=== PATIENT | female | born 1955 | race Caucasian/White ===

== ENCOUNTER 2017-11-17 10:23 | Outpatient (CLI) | payer MEDICAID ==
[~2017-11-17 10:23] MED LIST: ALBU8.5H8 IH; BECL8.7A6 INH; BISA10SU60 RC; CYCL-1 PO; GUAI600T45 PO; NAPR-56 PO; QUET25TA PO; SPIIN INH
[2017-11-17 10:37] VITALS: BP 137/74
== END 2017-11-17 11:35 | disposition home or self-care (01) ==
LOC: ORTHO 10:23
PROVIDERS: ATTEND Nurse Practitioner Family
DX: S62.316A Displaced fracture of base of fifth metacarpal bone, right hand, initial encounter for closed fracture (principal); F41.9 Anxiety disorder, unspecified; G89.29 Other chronic pain; I10 Essential (primary) hypertension; J44.9 Chronic obstructive pulmonary disease, unspecified; M81.0 Age-related osteoporosis without current pathological fracture; X58.XXXA Exposure to other specified factors, initial encounter; Y93.89 Activity, other specified; Y92.89 Other specified places as the place of occurrence of the external cause; Y99.8 Other external cause status; F17.210 Nicotine dependence, cigarettes, uncomplicated
CPT/HCPCS: 29125; 73130

== ENCOUNTER 2017-12-08 12:59 | Outpatient (CLI) | payer MEDICAID ==
[2017-12-08 12:45] VITALS: BP 144/82
[~2017-12-08 12:59] MED LIST changes: -NAPR-56 PO
== END 2017-12-08 13:25 | disposition home or self-care (01) ==
LOC: ORTHO 12:59
PROVIDERS: ATTEND Nurse Practitioner Family
DX: S62.346D Nondisplaced fracture of base of fifth metacarpal bone, right hand, subsequent encounter for fracture with routine healing (principal); M81.0 Age-related osteoporosis without current pathological fracture; F17.210 Nicotine dependence, cigarettes, uncomplicated; F41.9 Anxiety disorder, unspecified; G89.29 Other chronic pain; I10 Essential (primary) hypertension; J44.9 Chronic obstructive pulmonary disease, unspecified; X58.XXXD Exposure to other specified factors, subsequent encounter
CPT/HCPCS: 29260; 73130

== ENCOUNTER 2019-07-31 09:42 | Emergency (ER) | payer MEDICAID, OTHER ==
[~2019-07-31] VITALS: Ht 157.5 cm; Wt 36.9 kg
[2019-07-31] MEDS ORDERED: normal saline 1000ml 1,000 ML IV ONE (10:15)
[2019-07-31] MEDS ORDERED: famotidine 20mg tablet PO ONE (10:15)
[2019-07-31] MEDS ORDERED: ondansetron/PF 4mg/2ml inj IV ONE (10:15)
[2019-07-31] MEDS ORDERED: morphine 4 MG/ML inj SYRINge IV ONE (10:15)
[2019-07-31] MEDS ORDERED: pantoprazole 40 MG vial IV ONE (10:15)
[2019-07-31] MEDS ORDERED: iohexol 350MG/ML 100ml bottle IV ONE (10:38)
[2019-07-31 10:49] LABS: BASOPHILS # (AUTO) 0.1 X10'3 (0-0.2); BASOPHILS % (AUTO) 0.8 % (0-1); EOSINOPHILS % (AUTO) 0.2 % (0-6); HEMATOCRIT 40.8 % (35.0-45.0); HEMOGLOBIN 13.6 g/dl (12.0-16.0); LYMPHOCYTES % (AUTO) 13.5 % (21-51); MEAN CORPUSCULAR HEMOGLOBIN 33.2 PG (27.0-31.0); MEAN CORPUSCULAR HGB CONC 33.3 g/dL (33.0-36.5); MEAN CORPUSCULAR VOLUME 99.7 FL (78-98); MEAN PLATELET VOLUME 7.4 FL (7.4-10.4); MONOCYTES % (AUTO) 6.7 % (2-12); NEUTROPHILS # (AUTO) 11.8 X10'3 (1.8-7.7); NEUTROPHILS % (AUTO) 78.8 % (42-75); PLATELET COUNT 461 X10'3 (140-440); RED BLOOD COUNT 4.09 X10'6 (4.20-5.60); RED CELL DISTRIBUTION WIDTH 15.6 % (11.5-14.5); WHITE BLOOD COUNT 14.9 X10'3 (4.5-11.0)
[2019-07-31 11:04] LABS: PARTIAL THROMBOPLASTIN TIME 23 SECONDS (22-32)
[2019-07-31 11:05] LABS: ALANINE AMINOTRANSFERASE 14 U/L (12-78); ALBUMIN 3.9 G/DL (3.4-5.0); ALBUMIN/GLOBULIN RATIO 1.2 (1.1-1.5); ALKALINE PHOSPHATASE 62 IU/L (46-116); ANION GAP 19 (8-16); ASPARTATE AMINO TRANSFERASE 16 U/L (10-37); BILIRUBIN,TOTAL 0.4 MG/DL (0.1-1.0); BLOOD UREA NITROGEN 38 MG/DL (7-18); CHLORIDE 96 MMOL/L (99-107); POTASSIUM 4.4 MMOL/L (3.5-5.1); SODIUM 133 MMOL/L (135-145); TOTAL CARBON DIOXIDE 17.6 MMOL/L (24-32); TOTAL PROTEIN 7.1 G/DL (6.4-8.2)
[2019-07-31 11:21] LABS: BUN/CREATININE RATIO 16.8 (6.6-38.0); CALCIUM 8.9 MG/DL (8.5-10.1); CREATININE 2.32 MG/DL (0.40-0.90); GLUCOSE 74 MG/DL (70-104); eGFR 21 ML/MIN
[2019-07-31] MEDS ORDERED: TRAM50TA2 PO (12:05)
[2019-07-31] MEDS ORDERED: AZIT-63 PO (12:05)
[2019-07-31] MEDS ORDERED: azithromycin 250mg tablet PO ONE (12:05)
[2019-07-31 12:12] VITALS: BP 113/55
== END 2019-07-31 12:15 | disposition home or self-care (01) ==
LOC: ER 09:43
DX: R07.89 Other chest pain (principal); R05 Cough; R94.4 Abnormal results of kidney function studies; E86.0 Dehydration; I10 Essential (primary) hypertension; J43.9 Emphysema, unspecified; G89.29 Other chronic pain; M81.0 Age-related osteoporosis without current pathological fracture; F41.9 Anxiety disorder, unspecified; Z56.0 Unemployment, unspecified; Z79.2 Long term (current) use of antibiotics; Z79.899 Other long term (current) drug therapy; Z88.6 Allergy status to analgesic agent
CPT/HCPCS: 36415; 71046; 71275; 80053; 84145; 84484; 85025; 85610; 85730; 93005; 96361; 96374; 96375; 99284; C9113; J2270; J2405; J7030; Q9967

== ENCOUNTER 2021-11-26 15:22 | Inpatient (IN) | payer BC, MEDICAID ==
[~2021-11-26] VITALS: Ht 157.5 cm; Wt 38.6 kg
[2021-11-26 11:50] VITALS: BP 110/70
[~2021-11-26 15:22] MED LIST changes: +ALBU8.5H17 IH; -ALBU8.5H8 IH
[2021-11-26 15:59] LABS: ABG BASE EXCESS -2.7 mmol/L (-2.0-2.0); ABG HCO3 22.2 mmol/L (22.0-26.0); ABG OXYGEN SATURATION 93.6 % (94-97); ABG PCO2 (T) 39.3 mmHg (32.0-45.0); ALLEN'S TEST POSITIVE; FCOHb 1.2 % (0.0-3.9); FLOW 4 L/min; FMetHb 0.3 % (0.0-1.5); FO2Hb 92.2 % (94-97); PATIENT TEMPERATURE 37.1
[2021-11-26] MEDS ORDERED: methylPREDNISolone sod succ 125mg/2ml vial IV ONE (16:05)
[2021-11-26] MEDS ORDERED: LORazepam 0.5 MG tablet PO PRN ×2 (16:10→17:20)
[2021-11-26 16:14] LABS: APTT 29 SECONDS (22-32); D-DIMER 0.23 MG/L FEU (0-0.50)
[2021-11-26 16:41] LABS: BASOPHILS # (AUTO) 0.1 X10'3 (0-0.2); EOSINOPHILS # (AUTO) 0.7 X10'3 (0-0.9); EOSINOPHILS % (AUTO) 5.5 % (0-6); HEMATOCRIT 44.1 % (35.0-45.0); HEMOGLOBIN 14.5 g/dl (12.0-16.0); LYMPHOCYTES % (AUTO) 15.8 % (21-51); MEAN CORPUSCULAR HEMOGLOBIN 33.3 PG (27.0-31.0); MEAN CORPUSCULAR HGB CONC 32.8 g/dL (33.0-36.5); MEAN CORPUSCULAR VOLUME 101.4 FL (78-98); MEAN PLATELET VOLUME 7.3 FL (7.4-10.4); MONOCYTES # (AUTO) 1.2 X10'3 (0-0.9); MONOCYTES % (AUTO) 9.5 % (2-12); NEUTROPHILS # (AUTO) 8.4 X10'3 (1.8-7.7); NEUTROPHILS % (AUTO) 68.2 % (42-75); PLATELET COUNT 322 X10'3 (140-440); RED BLOOD COUNT 4.35 X10'6 (4.20-5.60); RED CELL DISTRIBUTION WIDTH 14.1 % (11.5-14.5); WHITE BLOOD COUNT 12.3 X10'3 (4.5-11.0)
[2021-11-26 16:53] LABS: ALANINE AMINOTRANSFERASE 17 U/L (12-78); ALBUMIN 3.7 G/DL (3.4-5.0); ALKALINE PHOSPHATASE 94 IU/L (46-116); ANION GAP 10 (8-16); ASPARTATE AMINO TRANSFERASE 20 U/L (10-37); BILIRUBIN,TOTAL 0.3 MG/DL (0.1-1.0); BLOOD UREA NITROGEN 14 MG/DL (7-18); BUN/CREATININE RATIO 12.5 (6.6-38.0); CALCIUM 9.3 MG/DL (8.5-10.1); CHLORIDE 102 MMOL/L (99-107); CREATININE 1.12 MG/DL (0.40-0.90); GLUCOSE 108 MG/DL (70-104); SODIUM 137 MMOL/L (135-145); TOTAL CARBON DIOXIDE 24.8 MMOL/L (24-32); TOTAL PROTEIN 7.4 G/DL (6.4-8.2); eGFR 49 ML/MIN
[2021-11-26] MEDS ORDERED: aspirin 325mg tablet PO ONE (17:15)
[2021-11-26] MEDS ORDERED: CefTRIAXone/D5W-Rocephin 1gm 50 ML IV ONE (17:20)
[2021-11-26] MEDS ORDERED: HYDROcodone/acetaminophen 5mg/325mg tablet PO PRN (17:50)
[2021-11-26] MEDS ORDERED: LORazepam 2 mg/ml vial IV ONE (17:50)
[2021-11-26] MEDS: normal saline 1000ml 1,000 ML IV SCH ×2 (17:50→21:55)
[2021-11-26] MEDS ORDERED: ondansetron/PF 4mg/2ml inj IV PRN (17:50)
[2021-11-26] MEDS ORDERED: acetaminophen 325mg tablet PO PRN ×2 (17:50)
[2021-11-26] MEDS: methylPREDNISolone sod succ 125mg/2ml vial IV SCH ×2 (19:00→19:22)
[2021-11-26] MEDS: morphine 2 MG/ML inj. syringe IV PRN (20:36)
--- NOTE | 2021-11-26 20:39 | NUR ---
pt very anxious, took her oxygen cannula off, had pulled her iv out also, stated she did not want to stay in the hospital. pt c/o being very uncomfortable, calmed after speaking with nurse, agreed to stay in the hospital and have iv replaced. pt medicated with morphine for pain
[2021-11-26] MEDS: traZODone 50mg tablet PO SCH (21:49)
[2021-11-26] MEDS: pantoprazole 40mg Tablet.DR PO SCH (22:13)
[2021-11-26] MEDS ORDERED: IPRA3AMP31 NEB (23:30)
[2021-11-26] MEDS ORDERED: TRAZ-256 PO (23:30)
[2021-11-26] MEDS ORDERED: ALBU8.5H17 IH (23:30)
--- NOTE | 2021-11-26 23:50 | NUR ---
Received pt AAOX4 , placed on monitor and oxygen. Pt denied any discomfort at this time and stated that she wants to sleep. IV fluid started, assessment done , respiratory notified to come and see pt. No sign of any discomfort noted.
[2021-11-27 02:00] VITALS: BP 103/42
[2021-11-27 03:04] VITALS: BP 101/69
[2021-11-27] MEDS: LORazepam 1 MG tablet PO PRN ×3 (04:29→16:47)
[2021-11-27 06:00] VITALS: BP 105/59
[2021-11-27 06:14] LABS: BASOPHILS % (AUTO) 0.1 % (0-1); EOSINOPHILS % (AUTO) 0 % (0-6); HEMATOCRIT 40.1 % (35.0-45.0); HEMOGLOBIN 13.5 g/dl (12.0-16.0); LYMPHOCYTES # (AUTO) 0.5 X10'3 (1.1-4.8); LYMPHOCYTES % (AUTO) 7.6 % (21-51); MEAN CORPUSCULAR HEMOGLOBIN 34.1 PG (27.0-31.0); MEAN CORPUSCULAR HGB CONC 33.7 g/dL (33.0-36.5); MEAN CORPUSCULAR VOLUME 101.3 FL (78-98); MEAN PLATELET VOLUME 7.4 FL (7.4-10.4); MONOCYTES # (AUTO) 0.1 X10'3 (0-0.9); MONOCYTES % (AUTO) 2.2 % (2-12); NEUTROPHILS # (AUTO) 5.8 X10'3 (1.8-7.7); NEUTROPHILS % (AUTO) 90.1 % (42-75); PLATELET COUNT 321 X10'3 (140-440); RED BLOOD COUNT 3.96 X10'6 (4.20-5.60); WHITE BLOOD COUNT 6.4 X10'3 (4.5-11.0)
[2021-11-27 06:25] LABS: ALANINE AMINOTRANSFERASE 17 U/L (12-78); ALBUMIN 3.2 G/DL (3.4-5.0); ALBUMIN/GLOBULIN RATIO 0.9 (1.1-1.5); ALKALINE PHOSPHATASE 82 IU/L (46-116); ANION GAP 8 (8-16); ASPARTATE AMINO TRANSFERASE 21 U/L (10-37); BILIRUBIN,TOTAL 0.4 MG/DL (0.1-1.0); BLOOD UREA NITROGEN 22 MG/DL (7-18); BUN/CREATININE RATIO 18.6 (6.6-38.0); CALCIUM 8.6 MG/DL (8.5-10.1); CHLORIDE 105 MMOL/L (99-107); CREATININE 1.18 MG/DL (0.40-0.90); GLUCOSE 134 MG/DL (70-104); SODIUM 137 MMOL/L (135-145); TOTAL CARBON DIOXIDE 24.5 MMOL/L (24-32); TOTAL PROTEIN 6.9 G/DL (6.4-8.2); eGFR 46 ML/MIN
[2021-11-27] MEDS: albuterol 2.5 MG/3 ML nebule NEB SCH ×6 (07:51→23:00)
[2021-11-27] MEDS: CefTRIAXone 2gm/D5W 50ml BAG 50 ML IV SCH (09:17)
[2021-11-27] MEDS: pantoprazole 40mg Tablet.DR PO SCH (09:18)
[2021-11-27] MEDS: methylPREDNISolone sod succ 125mg/2ml vial IV SCH ×2 (09:18→20:40)
[2021-11-27 11:00] VITALS: BP 110/66
[2021-11-27] MEDS: sertraline 25mg tablet PO SCH (11:00)
[2021-11-27] MEDS: nicotine 14mg patch - 24hr TD SCH (11:27)
--- NOTE | 2021-11-27 11:29 | NUR ---
Patient in room PCU 3017. I have received report from Janis CORDOVA and had the opportunity to ask questions and assume patient care.
--- NOTE | 2021-11-27 11:30 | NUR ---
Problems reprioritized. Patient report given, questions answered & plan of care reviewed with Keon CORDOVA.
[2021-11-27 11:38] LABS: ABG HCO3 23.4 mmol/L (22.0-26.0); ABG OXYGEN SATURATION 92.6 % (94-97); ABG PCO2 (T) 37.6 mmHg (32.0-45.0); ABG PO2 (T) 65.1 mmHg (75.0-100.0); ALLEN'S TEST POSITIVE; FCOHb 0.4 % (0.0-3.9); FMetHb 0.2 % (0.0-1.5); PATIENT TEMPERATURE 36.7
[2021-11-27] MEDS: LORazepam 2 mg/ml vial IV PRN (13:43)
--- NOTE | 2021-11-27 14:24 | NUR ---
Malnutrition consult: Pt reports 2-13 lb wt loss with decreased appetite per malnutrition risk screen with RN. Noted pt with a low BMI of 15.6 using scaled wt of 38.64 kg. Per EMR pt with scaled wt hx range of 42.6 kg to more recently 36.9 kg from 6862-2445. Pt appears to be chronically underweight. Pt documented with 25% PO intake first meal on regular diet. No documented edema per physical assessment. Pt appears well developed well nourished per ED report. Pt currently lacks a minimum of two criteria for malnutrition. Will continue to follow and monitor qualifying criteria for malnutrition. Addendum: 11/27/21 at [address] Amended: Links added.
--- NOTE | 2021-11-27 15:02 | NUR ---
PAGER ID: [phone] MESSAGE: Re: Rachelle Kaiser. Room: [facility]. ABG has resulted. Pt asking about being Discharged home. Pt on Room air 96% -[facility] #[id number] -Dr. Paige paged concerning Pt's results
[2021-11-27] MEDS ORDERED: NICO-631 TD (15:20)
[2021-11-27] MEDS ORDERED: SERT-432 PO (15:20)
[2021-11-27] MEDS ORDERED: LEVO500T90 PO (15:20)
--- NOTE | 2021-11-27 15:25 | NUR ---
PAGER ID: [phone] MESSAGE: Re: Rachelle Kaiser. Room: 301. Pt now states that she wants to stay one more night and feels short of breath. -[facility] #[id number] -Dr. Paige paged concerning Pt not wanting to be DC'd
--- NOTE | 2021-11-27 16:33 | NUR ---
During assessment, patient was shaking, crying, and stating that she wanted to go home. She removed oxygen multiple times but denied that she did it. Patient was offered medication for relief of anxiety but she refused.
--- NOTE | 2021-11-27 16:52 | NUR ---
Pt continues to state that she wants to go home and has severe anxiety. PO and IV ativan administered through out day to no avail. Spoke with Pt about the need to stay in the hospital and how leaving early could lead to readdmision.
[2021-11-27 18:00] VITALS: BP 103/54
--- NOTE | 2021-11-27 18:38 | NUR ---
Problems reprioritized. Patient report given, questions answered & plan of care reviewed with Williams CORDOVA.
--- NOTE | 2021-11-27 18:41 | NUR ---
Patient in room PCU 3017. I have received report from TASHA Herbert and had the opportunity to ask questions and assume patient care.
[2021-11-27] MEDS: traZODone 50mg tablet PO SCH (20:37)
[2021-11-27] MEDS: lactobacillus rhamnosus 10,000 MMU CELLS/CAPSULE PO SCH (20:38)
[2021-11-27] MEDS: morphine 2 MG/ML inj. syringe IV PRN (20:45)
[2021-11-27 22:00] VITALS: BP 97/57
[2021-11-27] MEDS: normal saline 1000ml 1,000 ML IV SCH (22:26)
[2021-11-28 02:00] VITALS: BP 103/58
[2021-11-28] MEDS: albuterol 2.5 MG/3 ML nebule NEB SCH ×3 (03:00→12:00)
[2021-11-28 06:00] VITALS: BP 116/60
[2021-11-28 07:58] LABS: BASOPHILS % (AUTO) 0.1 % (0-1); EOSINOPHILS % (AUTO) 0 % (0-6); HEMATOCRIT 37.1 % (35.0-45.0); HEMOGLOBIN 12.1 g/dl (12.0-16.0); LYMPHOCYTES # (AUTO) 0.5 X10'3 (1.1-4.8); LYMPHOCYTES % (AUTO) 4.1 % (21-51); MEAN CORPUSCULAR HEMOGLOBIN 32.9 PG (27.0-31.0); MEAN CORPUSCULAR HGB CONC 32.6 g/dL (33.0-36.5); MEAN CORPUSCULAR VOLUME 101.2 FL (78-98); MEAN PLATELET VOLUME 7.8 FL (7.4-10.4); MONOCYTES # (AUTO) 0.7 X10'3 (0-0.9); MONOCYTES % (AUTO) 5.2 % (2-12); NEUTROPHILS # (AUTO) 11.5 X10'3 (1.8-7.7); NEUTROPHILS % (AUTO) 90.6 % (42-75); PLATELET COUNT 339 X10'3 (140-440); RED BLOOD COUNT 3.66 X10'6 (4.20-5.60); RED CELL DISTRIBUTION WIDTH 14.2 % (11.5-14.5); WHITE BLOOD COUNT 12.6 X10'3 (4.5-11.0)
[2021-11-28] MEDS: sertraline 25mg tablet PO SCH (08:00)
[2021-11-28 08:11] LABS: ANION GAP 8 (8-16); BILIRUBIN,TOTAL 0.3 MG/DL (0.1-1.0); BLOOD UREA NITROGEN 30 MG/DL (7-18); BUN/CREATININE RATIO 23.3 (6.6-38.0); CALCIUM 8.3 MG/DL (8.5-10.1); CHLORIDE 107 MMOL/L (99-107); CREATININE 1.29 MG/DL (0.40-0.90); GLUCOSE 105 MG/DL (70-104); POTASSIUM 4.5 MMOL/L (3.5-5.1); SODIUM 140 MMOL/L (135-145); TOTAL CARBON DIOXIDE 25.3 MMOL/L (24-32); TOTAL PROTEIN 6.7 G/DL (6.4-8.2); eGFR 41 ML/MIN
[2021-11-28 08:12] LABS: ALANINE AMINOTRANSFERASE 15 U/L (12-78); ALBUMIN/GLOBULIN RATIO 0.8 (1.1-1.5); ALKALINE PHOSPHATASE 68 IU/L (46-116); ASPARTATE AMINO TRANSFERASE 19 U/L (10-37)
[2021-11-28] MEDS: LORazepam 2 mg/ml vial IV PRN (08:42)
[2021-11-28] MEDS: methylPREDNISolone sod succ 125mg/2ml vial IV SCH (08:46)
[2021-11-28] MEDS: pantoprazole 40mg Tablet.DR PO SCH (08:50)
[2021-11-28] MEDS: lactobacillus rhamnosus 10,000 MMU CELLS/CAPSULE PO SCH (08:50)
[2021-11-28] MEDS: nicotine 14mg patch - 24hr TD SCH (08:51)
[2021-11-28] MEDS: CefTRIAXone 2gm/D5W 50ml BAG 50 ML IV SCH (08:51)
[2021-11-28] MEDS ORDERED: PRED10TA23 PO (09:44)
--- NOTE | 2021-11-28 09:55 | NUR ---
O2 Sat at rest on room air:90 % If below 89%: Recovery O2 Sat at rest on ___LPM:___%:___% via (mask/nasal cannula, etc..) No further documentation is necessary. If O2 Sat did not drop below 89% on room air,ambulate patient on room air. O2 Sat while ambulating on room air:_83 % Recovery O2 Sat while ambulating on _2 LPM:__92 _% No further documentation is necessary. If patient does not drop below 89% while ambulating, he/she does not qualify for home O2.
[2021-11-28] MEDS ORDERED: pneumococcal 23-VAL P-sac vacc 25 mcg/0.5ml vial IMVAC ONE (10:00)
[2021-11-28] MEDS ORDERED: FLU VACC QS2021-22(6MOS UP)/PF 60 MCG/0.5 ML SYRINGE IM ONE (10:00)
[2021-11-28 11:00] VITALS: BP 108/38
[2021-11-28] MEDS: normal saline 1000ml 1,000 ML IV SCH (12:44)
--- NOTE | 2021-11-28 14:30 | NUR ---
Patient stable for discharge. Oxygen was delivered. Patient was anxious and did not want to wait for FWW to be delivered. [facility] states [facility] will call them when the FWW is ready so they can pick it up. A phone number was provided to pt and incase they do not call. PIV removed with catheter intact. Telemetry removed. Prescriptions called into [facility] off [address] [place]. Discharge instructions reviewed with and patient. Transferred with all belongings to personal vehicle.
== END 2021-11-28 14:57 | disposition home or self-care (01) | DRG 190 ==
LOC: ER 15:23 → ED HOLD 17:56 → PCU 3S 23:21
PROVIDERS: ADMIT Internal Medicine; ATTEND Internal Medicine
DX: J44.1 Chronic obstructive pulmonary disease with (acute) exacerbation (principal); I21.A1 Myocardial infarction type 2; N18.30 Chronic kidney disease, stage 3 unspecified; M81.0 Age-related osteoporosis without current pathological fracture; F42.9 Obsessive-compulsive disorder, unspecified; F41.9 Anxiety disorder, unspecified; F17.210 Nicotine dependence, cigarettes, uncomplicated; I25.10 Atherosclerotic heart disease of native coronary artery without angina pectoris; Z20.822 Contact with and (suspected) exposure to COVID-19; R09.02 Hypoxemia; I12.9 Hypertensive chronic kidney disease with stage 1 through stage 4 chronic kidney disease, or unspecified chronic kidney disease; Z95.5 Presence of coronary angioplasty implant and graft; Z88.8 Allergy status to other drugs, medicaments and biological substances
CPT/HCPCS: 36415; 36600; 71045; 80053; 82803; 83605; 83735; 83880; 84145; 84484; 85018; 85025; 85379; 85610; 85730; 87040; 87081; 87635; 90732; 93005; 93306; 94640; 94760; 97110; 97116; 97162; 99285; C9803; G0378; J0696; J2060; J2270; J2930; J7030

== ENCOUNTER 2022-07-21 07:31 | Emergency (ER) | payer BC, MEDICAID ==
[~2022-07-21] VITALS: Ht 157.5 cm; Wt 34.6 kg
[~2022-07-21 07:31] MED LIST changes: -BECL8.7A6 INH; -BISA10SU60 RC; -CYCL-1 PO; -GUAI600T45 PO; +IPRA3AMP31 NEB; +NICO-631 TD; -QUET25TA PO; +SERT-432 PO; -SPIIN INH; +TRAZ-256 PO
[2022-07-21] MEDS ORDERED: ondansetron/PF 4mg/2ml inj IV ONE (07:45)
[2022-07-21] MEDS ORDERED: normal saline 1000ML IV soln IVB ONE (07:45)
[2022-07-21] MEDS ORDERED: LORazepam 1 MG tablet PO ONE (07:50)
[2022-07-21 08:22] LABS: BASOPHILS # (AUTO) 0.1 X10'3 (0-0.2); BASOPHILS % (AUTO) 1.2 % (0-1); EOSINOPHILS # (AUTO) 0.2 X10'3 (0-0.9); EOSINOPHILS % (AUTO) 1.8 % (0-6); HEMATOCRIT 34.2 % (35.0-45.0); HEMOGLOBIN 11.6 g/dl (12.0-16.0); LYMPHOCYTES # (AUTO) 1.6 X10'3 (1.1-4.8); LYMPHOCYTES % (AUTO) 15.1 % (21-51); MEAN CORPUSCULAR HEMOGLOBIN 35.5 PG (27.0-31.0); MEAN CORPUSCULAR HGB CONC 33.8 g/dL (33.0-36.5); MEAN CORPUSCULAR VOLUME 104.9 FL (78-98); MEAN PLATELET VOLUME 7.4 FL (7.4-10.4); MONOCYTES # (AUTO) 0.9 X10'3 (0-0.9); MONOCYTES % (AUTO) 8.1 % (2-12); NEUTROPHILS # (AUTO) 7.8 X10'3 (1.8-7.7); NEUTROPHILS % (AUTO) 73.8 % (42-75); PLATELET COUNT 267 X10'3 (140-440); RED BLOOD COUNT 3.26 X10'6 (4.20-5.60); RED CELL DISTRIBUTION WIDTH 17.4 % (11.5-14.5); WHITE BLOOD COUNT 10.6 X10'3 (4.5-11.0)
[2022-07-21 08:29] LABS: CLARITY,URINE CLEAR (Clear); COLOR,URINE YELLOW (Yellow); GLUCOSE, URINE NEGATIVE (Neg); KETONES,URINE TRACE mg/dl (Neg); LEUKOCYTE ESTERASE ,URINE NEGATIVE (Neg); NITRITES, URINE POSITIVE (Neg); OCCULT BLOOD,URINE NEGATIVE (Neg); PROTEIN,URINE 30 mg/dl (Neg); UROBILINOGEN,URINE 0.2 E.U/dL (0.2-1.0)
[2022-07-21 08:32] LABS: UA COLLECTION TYPE STRAIGHT CATH
[2022-07-21 08:36] LABS: ALANINE AMINOTRANSFERASE 24 U/L (12-78); ALBUMIN/GLOBULIN RATIO 0.9 (1.1-1.5); ALKALINE PHOSPHATASE 102 IU/L (46-116); ANION GAP 9 (8-16); ASPARTATE AMINO TRANSFERASE 25 U/L (10-37); BILIRUBIN,TOTAL 0.4 MG/DL (0.1-1.0); BLOOD UREA NITROGEN 10 MG/DL (7-18); CALCIUM 8.5 MG/DL (8.5-10.1); CHLORIDE 103 MMOL/L (99-107); CREATININE 1.11 MG/DL (0.40-0.90); GLUCOSE 109 MG/DL (70-104); LIPASE 74 U/L (73-393); RBC,URINE NONE SEEN /HPF (0-2); SODIUM 137 MMOL/L (135-145); TOTAL CARBON DIOXIDE 25.3 MMOL/L (24-32); TOTAL PROTEIN 6.4 G/DL (6.4-8.2); eGFR 49 ML/MIN
[2022-07-21 08:37] LABS: BACTERIA,URINE 3+ /HPF (Neg); MUCUS STRANDS MODERATE /LPF (Neg); POTASSIUM 2.9 MMOL/L (3.5-5.1); SQUAMOUS EPITHELIAL CELL,UR FEW /LPF (FEW)
[2022-07-21] MEDS ORDERED: potassium Cl 20 mEq SR tablet PO STA (08:39)
[2022-07-21] MEDS ORDERED: CefTRIAXone 2gm/D5W 50ml BAG 50 ML IV ONE (08:40)
[2022-07-21] MEDS ORDERED: morphine 2 MG/ML inj. syringe IV STA (08:42)
[2022-07-21] MEDS ORDERED: phenazopyridine 100mg tablet PO ONE (08:50)
--- NOTE | 2022-07-21 08:58 | NUR ---
PT TO CT.
[2022-07-21] MEDS ORDERED: ONDA4TAB12 PO ×3 (09:41→09:43)
[2022-07-21] MEDS ORDERED: CEPH-585 PO ×3 (09:41→09:43)
[2022-07-21] MEDS ORDERED: POTA-207 PO ×3 (09:41→09:43)
[2022-07-21 10:27] VITALS: BP 116/63
== END 2022-07-21 10:27 | disposition home or self-care (01) ==
LOC: ER 07:31
DX: N39.0 Urinary tract infection, site not specified (principal); R11.10 Vomiting, unspecified; J44.9 Chronic obstructive pulmonary disease, unspecified; G89.29 Other chronic pain; M54.9 Dorsalgia, unspecified; I11.0 Hypertensive heart disease with heart failure; F31.9 Bipolar disorder, unspecified; Z56.0 Unemployment, unspecified; Z88.8 Allergy status to other drugs, medicaments and biological substances; Z79.899 Other long term (current) drug therapy; Z79.1 Long term (current) use of non-steroidal anti-inflammatories (NSAID)
CPT/HCPCS: 36415; 74176; 80053; 81001; 83690; 85025; 87077; 87088; 87186; 93005; 96361; 96365; 96375; 99285; J0696; J2270; J2405; J7030; A4353; A4615

== ENCOUNTER 2022-07-28 03:59 | Emergency (ER) | payer BC, MEDICAID ==
[~2022-07-28] VITALS: Ht 157.5 cm; Wt 35.0 kg
[~2022-07-28 03:59] MED LIST changes: +CEPH-585 PO; +ONDA4TAB12 PO; +POTA-207 PO
[2022-07-28] MEDS ORDERED: HYDROcodone/acetaminophen 5mg/325mg tablet PO ONE (04:25)
[2022-07-28] MEDS ORDERED: ondansetron 4mg rapidly disintigrating tab PO ONE (04:25)
[2022-07-28] MEDS ORDERED: morphine 4 MG/ML inj SYRINge IM ONE (05:15)
[2022-07-28] MEDS ORDERED: orphenadrine citrate 60mg/2ml inj. IM ONE (05:15)
[2022-07-28] MEDS ORDERED: CYCL-1 PO (05:46)
[2022-07-28] MEDS ORDERED: HYDR-3965 PO (05:46)
[2022-07-28 06:13] VITALS: BP 107/59
== END 2022-07-28 06:21 | disposition home or self-care (01) ==
LOC: ER 04:00
DX: M54.59 Other low back pain (principal); I11.9 Hypertensive heart disease without heart failure; J43.9 Emphysema, unspecified; G89.29 Other chronic pain; F31.9 Bipolar disorder, unspecified; Z56.0 Unemployment, unspecified; Z88.5 Allergy status to narcotic agent; Z79.1 Long term (current) use of non-steroidal anti-inflammatories (NSAID); Z79.899 Other long term (current) drug therapy; W22.03XA Walked into furniture, initial encounter; Y93.89 Activity, other specified; Y92.89 Other specified places as the place of occurrence of the external cause; Y99.8 Other external cause status
CPT/HCPCS: 72074; 96372; 99284; J2270; J2360

== ENCOUNTER 2022-09-21 04:30 | Emergency (ER) | payer BC, MEDICAID ==
[~2022-09-21] VITALS: Ht 154.9 cm; Wt 31.1 kg
[~2022-09-21 04:30] MED LIST changes: +CYCL-1 PO
[2022-09-21] MEDS ORDERED: ondansetron/PF 4mg/2ml inj IV ONE (04:50)
[2022-09-21] MEDS: normal saline 1000ML IV soln IVB ONE (05:08)
[2022-09-21] MEDS: LORazepam 2 mg/ml vial IV ONE ×2 (05:15→11:25)
--- NOTE | 2022-09-21 06:45 | NUR ---
Pt is restless and fussing with her blankets and wires.
[2022-09-21 07:27] LABS: BASOPHILS # (AUTO) 0.1 X10'3 (0-0.2); BASOPHILS % (AUTO) 0.8 % (0-1); EOSINOPHILS # (AUTO) 0.1 X10'3 (0-0.9); EOSINOPHILS % (AUTO) 0.7 % (0-6); HEMATOCRIT 34.3 % (35.0-45.0); HEMOGLOBIN 11.3 g/dl (12.0-16.0); LYMPHOCYTES # (AUTO) 1.6 X10'3 (1.1-4.8); LYMPHOCYTES % (AUTO) 16.9 % (21-51); MEAN CORPUSCULAR HEMOGLOBIN 34.9 PG (27.0-31.0); MEAN CORPUSCULAR HGB CONC 33.1 g/dL (33.0-36.5); MEAN CORPUSCULAR VOLUME 105.7 FL (78-98); MEAN PLATELET VOLUME 7.3 FL (7.4-10.4); MONOCYTES # (AUTO) 0.8 X10'3 (0-0.9); MONOCYTES % (AUTO) 8.4 % (2-12); NEUTROPHILS # (AUTO) 6.8 X10'3 (1.8-7.7); NEUTROPHILS % (AUTO) 73.2 % (42-75); PLATELET COUNT 191 X10'3 (140-440); RED BLOOD COUNT 3.25 X10'6 (4.20-5.60); RED CELL DISTRIBUTION WIDTH 17.2 % (11.5-14.5); WHITE BLOOD COUNT 9.3 X10'3 (4.5-11.0)
--- NOTE | 2022-09-21 07:27 | NUR ---
Pt's called to check on the pt. He stated that restlessness and anxiety are her normal state of being.
[2022-09-21 07:40] LABS: ALANINE AMINOTRANSFERASE 22 U/L (12-78); ALBUMIN 2.6 G/DL (3.4-5.0); ALBUMIN/GLOBULIN RATIO 0.9 (1.1-1.5); ALKALINE PHOSPHATASE 103 IU/L (46-116); ANION GAP 6 (8-16); ASPARTATE AMINO TRANSFERASE 27 U/L (10-37); BILIRUBIN,TOTAL 0.5 MG/DL (0.1-1.0); BLOOD UREA NITROGEN 10 MG/DL (7-18); BUN/CREATININE RATIO 10.1 (6.6-38.0); CHLORIDE 103 MMOL/L (99-107); CREATININE 0.99 MG/DL (0.40-0.90); ETHANOL < 0.010 GM/DL (0.0-0.010); GLUCOSE 85 MG/DL (70-104); LIPASE 53 U/L (73-393); POTASSIUM 3.3 MMOL/L (3.5-5.1); SODIUM 136 MMOL/L (135-145); TOTAL CARBON DIOXIDE 26.9 MMOL/L (24-32); TOTAL PROTEIN 5.6 G/DL (6.4-8.2); eGFR 56 ML/MIN
--- NOTE | 2022-09-21 09:30 | NUR ---
Pt's called again. Informed of his 's wishes. She wants to go home.
[2022-09-21] MEDS ORDERED: iohexol 300mg/ml 100ml inj. ONE (09:47)
[2022-09-21 10:01] VITALS: BP 140/66
--- NOTE | 2022-09-21 10:17 | NUR ---
To CT via gurney, transported by alarm field technician.
[2022-09-21] MEDS ORDERED: LORazepam 2 mg/ml vial IV ONE (10:55)
--- NOTE | 2022-09-21 11:24 | NUR ---
Pt pulled out her IV and pulled off all of her monitoring equipment. Dr. Acuna is aware.
[2022-09-21] MEDS ORDERED: METO5TAB98 PO (11:26)
== END 2022-09-21 11:48 | disposition home or self-care (01) ==
LOC: ER 04:30
DX: R11.2 Nausea with vomiting, unspecified (principal); R19.7 Diarrhea, unspecified; R10.9 Unspecified abdominal pain; J44.9 Chronic obstructive pulmonary disease, unspecified; I11.9 Hypertensive heart disease without heart failure; G89.29 Other chronic pain; M54.9 Dorsalgia, unspecified; F41.9 Anxiety disorder, unspecified; F17.200 Nicotine dependence, unspecified, uncomplicated; Z56.0 Unemployment, unspecified; Z88.0 Allergy status to penicillin; Z79.899 Other long term (current) drug therapy; Z79.2 Long term (current) use of antibiotics; Z79.1 Long term (current) use of non-steroidal anti-inflammatories (NSAID)
CPT/HCPCS: 36415; 71260; 74177; 80053; 80320; 82948; 83690; 85025; 93005; 96361; 96374; 99285; J2060; J3490; J7030; Q9967

== ENCOUNTER 2022-09-28 12:47 | Emergency (ER) | payer BC, MEDICAID ==
[~2022-09-28] VITALS: Ht 154.9 cm; Wt 29.8 kg
[~2022-09-28 12:47] MED LIST changes: +METO5TAB98 PO
[2022-09-28 13:19] VITALS: BP 140/90
== END 2022-09-28 19:45 | disposition left against medical advice (07) ==
LOC: ER 12:47
DX: R06.02 Shortness of breath (principal); Z53.21 Procedure and treatment not carried out due to patient leaving prior to being seen by health care provider
CPT/HCPCS: 93005